=== PATIENT | female | born 1970 | race Caucasian/White ===

== ENCOUNTER 2018-02-02 19:45 | Emergency (ER) | payer MEDICAID ==
[~2018-02-02] VITALS: Wt 72.0 kg
[2018-02-02] MEDS ORDERED: ONDANSETRON 4 MG INJ IV STA (22:07)
[2018-02-02] MEDS ORDERED: morphine 4 MG/ML VIAL IV STA (22:07)
--- NOTE | 2018-02-02 22:13 | ERD ---
ER Documentation Chief Complaint Chief Complaint c/o rectal pain, hx of hemorrhoids/fistula HPI This is a 48-year-old female who presents here in emergency department with complaints of rectal bleeding and rectal pain for about a few days but got worse today. Stated that he has an appointment with a colorectal surgeon tomorrow but her pain got worse and she has difficulty walking due to pain. LMP: 06/10/2017. A0. Denies headache, head injury, loss of consciousness, dizziness, neck pain, neck stiffness, throat pain, difficulty swallowing, difficulty breathing lying flat, shoulder pain, chest pain, back pain, nausea, vomiting, constipation, diarrhea, urinary symptoms, or possibility being , loss of bowel and bladder control, trauma, injury, falls, difficulty walking due to pain, numbness or tingling sensation, calf pain, recent travel, recent major surgery in the last 3 weeks, calf pain, recent long travel, recent exposure to any illness, recent antibiotic use in the last 3 months, fever, chills, seizures. Past medical history: Surgical history: Social: Denies smoking, use of alcoholic beverages, use of illegal drugs. ROS All systems reviewed and are negative except as per history of present illness. Medications Home Meds Active Scripts Hydrocodone/Acetaminophen ([place] 10-325 Tablet) 1 Each Tablet, 1 TAB PO Q6H PRN for PAIN, #7 TAB Prov:EDWARDO MORALES F 02/03/18 Docusate Sodium* (Colace*) 100 Mg Capsule, 100 MG PO DAILY PRN for CONSTIPATION, #30 CAP Prov:GENEILABANTRANAR F 02/03/18 Allergies Allergies: Coded Allergies: No Known Drug Allergies (Verified Allergy, Unknown, 02/02/18) PMhx/Soc Medical and Surgical Hx: pt denies Surgical Hx Hx Miscellaneous Medical Probl: Yes (hemmorhoids ) Hx Alcohol Use: No Hx Substance Use: No Hx Tobacco Use: No Smoking Status: Never smoker Physical Exam Vitals Vital Signs Date Temp Pulse Resp B/P (MAP) Pulse Ox O2 O2 Flow FiO2 Time Delivery Rate 02/03/18 98.2 74 19 124/72 98 Room Air 01:59 (89) 02/02/18 97.8 97 18 122/73 98 19:49 (89) Physical Exam Examined with female webbing tacker, Queta DYSON. Const: No acute distress Head: Atraumatic Eyes: Normal Conjunctiva ENT: Normal External Ears, Nose and Mouth. Neck: Full range of motion. No meningismus. Resp: Clear to auscultation bilaterally Cardio: Regular rate and rhythm, no murmurs Abd: Soft, non tender, non distended. Normal bowel sounds. Lower abdominal tenderness to palpation. Rectal area: No external hemorrhoids that is obvious but very tender to palpation. Patient extreme pain. No active bleeding. Has difficulty walking due to rectal pain and lower abdominal pain. Skin: No petechiae or rashes Back: No midline or flank tenderness Ext: No cyanosis, or edema Neur: Awake and alert Psych: Normal Mood and Affect Result Diagram: 02/02/18222202/02/182222 Results 24 hrs Laboratory Tests Test 02/02/18 22:04 02/02/18 22:13 02/02/18 22:23 Stool Occult Blood NEGATIVE POC Beta HCG, Qualitative NEGATIVE White Blood Count 8.5 10^3/ul Red Blood Count 4.32 10^6/ul Hemoglobin 13.2 g/dl Hematocrit 38.2 % Mean Corpuscular Volume 88.4 fl Mean Corpuscular Hemoglobin 30.6 pg Mean Corpuscular 34.6 g/dl Hemoglobin Concent Red Cell Distribution Width 12.2 % Platelet Count 298 10^3/UL Mean Platelet Volume 10.1 fl Immature Granulocytes % 0.200 % Neutrophils % 69.1 % Lymphocytes % 22.9 % Monocytes % 7.4 % Eosinophils % 0.2 % Basophils % 0.2 % Nucleated Red Blood Cells % 0.0 /100WBC Immature Granulocytes # 0.020 10^3/ul Neutrophils # 5.9 10^3/ul Lymphocytes # 1.9 10^3/ul Monocytes # 0.6 10^3/ul Eosinophils # 0.0 10^3/ul Basophils # 0.0 10^3/ul Nucleated Red Blood Cells # 0.0 10^3/ul Prothrombin Time 13.0 Sec Prothrombin Time Ratio 1.0 INR International 0.97 Normalized Ratio Activated Partial Thromboplast 27.5 Sec Time Urine Color COLORLESS Urine Clarity CLEAR Urine pH 6.0 Urine Specific Teller 1.001 Urine Ketones NEGATIVE mg/dL Urine Nitrite NEGATIVE mg/dL Urine Bilirubin NEGATIVE mg/dL Urine Urobilinogen NEGATIVE mg/dL Urine Leukocyte Esterase NEGATIVE [place]/ul Urine Microscopic RBC 1 /HPF Urine Microscopic WBC 1 /HPF Urine Hemoglobin 2+ mg/dL Urine Glucose NEGATIVE mg/dL Urine Total Protein NEGATIVE mg/dl Sodium Level 139 mmol/L Potassium Level 4.0 mmol/L Chloride Level 99 mmol/L Carbon Dioxide Level 28 mmol/L Anion Gap 12 Blood Urea Nitrogen 6 mg/dl Creatinine 0.41 mg/dl Est Glomerular Filtrat > 60 mL/min Rate mL/min Glucose Level 101 mg/dl Calcium Level 9.8 mg/dl Total Bilirubin 0.3 mg/dl Direct Bilirubin 0.00 mg/dl Indirect Bilirubin 0.3 mg/dl Aspartate Amino 26 IU/L Transf (AST/SGOT) Alanine 12 IU/L Aminotransferase (ALT/SGPT) Alkaline Phosphatase 66 IU/L Total Protein 7.9 g/dl Albumin 5.0 g/dl Globulin 2.90 g/dl Albumin/Globulin Ratio 1.72 Amylase Level 88 U/L Lipase 103 U/L Current Medications Medications Dose Sig/Jolene Start Time Status Last (Trade) Ordered Route PRN Stop Time Admin Dose Reason Admin Morphine 4 mg ONCE STAT 02/02/18 DC 02/02/18 Sulfate IV 22:07 22:16 (morphine) 02/02/18 22:11 Ondansetron 4 mg ONCE STAT 02/02/18 DC 02/02/18 HCl (Zofran IV 22:07 22:16 Inj) 02/02/18 22:11 Sodium 1,000 ml @ Q1H ONCE 02/02/18 DC 02/02/18 Chloride 1,000 mls/hr IV 22:30 22:16 02/02/18 23:29 Sodium 100 ml @ ud STK-MED 02/02/18 DC 02/02/18 Chloride ONCE .ROUTE 23:06 23:38 02/02/18 23:07 Iohexol 150 ml STK-MED 02/02/18 DC 02/02/18 (Omnipaque ONCE .ROUTE 23:06 23:37 300mg/ ml) 02/02/18 23:07 1 mg ONCE STAT 02/03/18 DC 02/03/18 Hydromorphone IV 00:35 00:41 HCl 02/03/18 (Dilaudid) 00:36 Procedures/MDM Diagnostic tests: POC urine : Negative. Urinalysis: Culture urine: Sent. Blood works: Reviewed. CT of the abdomen and pelvis with IV contrast: 1. Suggestion of a constipation pattern without evidence of colitis, proctitis or perirectal abscess. 2. Left ovarian cyst of 3 x 2.2 cm with some increased attenuation of the wrist suggesting internal hemorrhage or debris. The finding is almost certainly benign and no follow-up imaging is recommended. 3. Cholecystectomy with minimal postoperative common bile and intrahepatic duct prominence. Treatment: Saline lock. Normal saline IV bolus. Morphine IV. Zofran IV. Re-evaluation: Denies pain. Denies rectal bleeding. No abdominal tenderness. Stated that she feels much better this time. Patient stated that she is comfortable going home. Differential diagnosis I have low suspicion for sepsis, severe hemorrhage, perirectal abscess, bowel obstruction, appendicitis, diverticulitis, pancreatitis, cholecystitis, nephrolithiasis, pyelonephritis, obstructing kidney stones, severe dehydration. Final diagnosis: Constipation. Rectal pain. Prescription: [place]. Docusate. Follow-up with PCP in the next 24-48 hours. Follow-up with colorectal surgeon tomorrow. Patient has already an appointment tomorrow with her colorectal surgeon. Come back here in the emergency department for any new symptoms or any worsening symptoms. All questions and concerns were answered. Patient and family members verbalized understanding and agreed with plan of care. Hemodynamically stable on discharge. Departure Diagnosis: Primary Impression: Rectal pain Additional Impression: Constipation Condition: Stable Additional Instructions: Follow-up with PCP in the next 24-48 hours. Follow-up with colorectal surgeon tomorrow. Patient has already an appointment tomorrow with her colorectal surgeon. Come back here in the emergency department for any new symptoms or any worsening symptoms. EDWARDO MORALES Feb 02, 2018 22:13
[2018-02-02] MEDS ORDERED: SOD CHLORIDE 0.9% 1,000 ML IV ONE (22:30)
[2018-02-02] MEDS ORDERED: IOHEXOL 300MG/ML 150 ML BTL ONE (23:06)
[2018-02-02] MEDS ORDERED: SOD CHLORIDE 0.9% 100 ML ONE (23:06)
[2018-02-03] MEDS ORDERED: HYDR-3980 PO (00:33)
[2018-02-03] MEDS ORDERED: DOCU-144 PO (00:33)
[2018-02-03] MEDS ORDERED: HYDROmorphONE 0.5 MG/0.5 ML SYG IV STA (00:35)
[2018-02-03 01:59] VITALS: BP 124/72; PULSE 74; RESP 19
== END 2018-02-03 02:13 | disposition home or self-care (01) ==
LOC: FTE 19:45
DX: K62.89 Other specified diseases of anus and rectum (principal); K59.00 Constipation, unspecified; R10.9 Unspecified abdominal pain
CPT/HCPCS: 74177; 80053; 81001; 81025; 82150; 82270; 83690; 85025; 85610; 85730; 87086; J1170; J2270; J2405; J7030; Q9967; Z7610; 96361; 96374; 96375